=== PATIENT | male | born 1960 | race Caucasian/White ===

== ENCOUNTER 2018-10-07 18:56 | Inpatient (IN) | payer BC ==
[~2018-10-07] VITALS: Ht 170.2 cm; Wt 129.9 kg
[2018-10-07 19:10] LABS: Calcium, Ionized (POC) 1.14 mmol/L (1.10-1.46); Chloride (POC) 107 mmol/L (98-108); Creatinine (POC) 0.6 mg/dL (0.8-1.3); Glucose (ISTAT POC) 215 mg/dL (70-99); Hemoglobin (POC) 10.2 g/dL (13.5-17.5); Potassium (POC) 4.7 mmol/L (3.5-5.5); Sodium (POC) 138 mmol/L (135-148); Total CO2 (POC) 21 mmol/L (21-32)
[2018-10-07 19:17] LABS: BASOPHILS ABSOLUTE AUTO 0.04 K/mm3 (0.00-0.23); BASOPHILS PERCENT AUTO 0 % (0-2); EOSINOPHILS PERCENT AUTO 0 % (0-6); Hematocrit 31.6 % (37.0-53.0); Hemoglobin 10.3 g/dL (13.5-17.5); IMMATURE GRAN ABSOLUTE AUTO 0.15 K/mm3 (0.00-0.10); IMMATURE GRAN PERCENT AUTO 1 % (0-1); LYMPHOCYTES ABSOLUTE AUTO 1.78 K/mm3 (0.84-5.20); LYMPHOCYTES PERCENT AUTO 11 % (21-46); MONOCYTES ABSOLUTE AUTO 0.62 K/mm3 (0.16-1.47); MONOCYTES PERCENT AUTO 4 % (4-13); Mean Corpuscular HGB 30.9 pg (26.0-34.0); Mean Corpuscular HGB Conc 32.6 g/dL (31.5-36.5); Mean Corpuscular Volume 95 fL (80-100); Mean Platelet Volume 11.1 fL (9.1-12.4); NEUTROPHILS ABSOLUTE AUTO 13.68 K/mm3 (1.96-9.15); NEUTROPHILS PERCENT AUTO 84 % (41-73); Platelet Count 172 K/mm3 (150-400); RDW Coefficient Variation 15.1 % (11.7-14.2); RDW Standard Deviation 52.3 fL (35.1-46.3); Red Blood Cell Count 3.33 M/mm3 (4.30-5.90); White Blood Cell Count 16.27 K/mm3 (4.00-11.30)
[2018-10-07 19:39] LABS: Alanine Aminotransfer (ALT/SGP 49 U/L (12-78); Albumin, Blood 2.3 g/dL (3.4-5.0); Albumin/Globulin Ratio 0.6 (0.8-1.8); Alk Phos 150 U/L (50-136); Anion Gap 9 mmol/L (6-16); Aspartate Aminotrans (AST/SGOT 90 U/L (12-37); Bilirubin, Total 1.7 mg/dL (0.1-1.0); Blood Urea Nitrogen 26 mg/dL (8-24); Bun/Creatinine Ratio 53.1 (12.0-20.0); CO2, Blood 23 mmol/L (21-32); Calcium, Blood 8.8 mg/dL (8.5-10.1); Chloride, Blood 108 mmol/L (98-108); Creatinine, Blood 0.49 mg/dL (0.60-1.20); Globulin, Blood 3.6 g/dL (2.2-4.0); Glomerular Filtration Rate >60 (60-); Glucose, Blood 219 mg/dL (70-99); Potassium, Blood 4.7 mmol/L (3.5-5.5); Sodium, Blood 140 mmol/L (136-145); Total Protein, Blood 5.9 g/dL (6.4-8.2)
[2018-10-07 19:46] LABS: International Normalized Ratio 1.38; Prothrombin Time Results 14.2 Sec (9.7-11.5)
[2018-10-07] MEDS ORDERED: CENTRUM SILVER1 EAC2 PO (21:36)
[2018-10-07] MEDS ORDERED: VITAMIN D32000 UNIT PO (21:36)
[2018-10-07] MEDS ORDERED: Milk Thistle150 MG PO (21:37)
[2018-10-07] MEDS ORDERED: FISH OIL 1,001000 MG PO (21:38)
--- NOTE | 2018-10-07 21:47 | NUR ---
ASSUMED CARE RECIEVED REPORT FROM BERENICE IYER FROM ER. PT ARRIVES TO ICU VIA STRETCHER AT 2114. PT ALERT AND ORIENTED X 4, DENIES PAIN, SOB, AND NAUSEA. PT IS RECIEVING PROTONIX AND OCTREOTIDE GTTPS.
--- NOTE | 2018-10-07 21:50 | NUR ---
UPDATE DR. JUAN IN ROOM TO SEE PT AND EXPLAINING EGD PROCEDUE TO PT.
--- NOTE | 2018-10-07 21:55 | NUR ---
ANESTHESIA AND DAY SURGERY IN ROOM SETTING UP FOR PROCEDURE.
--- NOTE | 2018-10-07 21:59 | NUR ---
10/07/18 2113 Isaias Amor History, Chart, Medications and Allergies reviewed before start of procedure.MONITOR INTACT WITH CONTINUOUS PULSE OXIMETRY AND INTERMITTENT BP.3-LEAD EKG REVIEWED WITH PHYSICIAN PRIOR TO START OF PROCEDURE.O2 VIA N/C INTACT THROUGHOUT SEDATION/PROCEDURE. Patient confirms NPO status and agrees with scheduled surgery.See Anesthesia record.
[2018-10-07 23:01] LABS: Hematocrit 28.9 % (37.0-53.0); Hemoglobin 9.4 g/dL (13.5-17.5)
[2018-10-08 03:45] LABS: Hematocrit 27.1 % (37.0-53.0); Hemoglobin 8.9 g/dL (13.5-17.5)
[2018-10-08 04:06] LABS: Alanine Aminotransfer (ALT/SGP 44 U/L (12-78); Albumin, Blood 2.3 g/dL (3.4-5.0); Albumin/Globulin Ratio 0.7 (0.8-1.8); Alk Phos 134 U/L (50-136); Anion Gap 6 mmol/L (6-16); Aspartate Aminotrans (AST/SGOT 75 U/L (12-37); Bilirubin, Total 1.3 mg/dL (0.1-1.0); Blood Urea Nitrogen 27 mg/dL (8-24); Bun/Creatinine Ratio 51.2 (12.0-20.0); CO2, Blood 27 mmol/L (21-32); Chloride, Blood 109 mmol/L (98-108); Creatinine, Blood 0.53 mg/dL (0.60-1.20); Globulin, Blood 3.4 g/dL (2.2-4.0); Glomerular Filtration Rate >60 (60-); Glucose, Blood 235 mg/dL (70-99); Potassium, Blood 4.9 mmol/L (3.5-5.5); Sodium, Blood 142 mmol/L (136-145); Total Protein, Blood 5.7 g/dL (6.4-8.2)
[2018-10-08 07:13] LABS: Hematocrit 27.5 % (37.0-53.0)
--- NOTE | 2018-10-08 07:22 | NUR ---
SHIFT SUMMARY NO ACUTE CHANGES OVERNIGHT. PT IS ALERT AND ORIENTED X 4. HE DENIES PAIN, NAUSEA, AND ANY DISCOMFORT. ADMITS TO DRINKING 6 BEERS/DAY, MORE ON THE WEEKENDS FOR YEARS. BANANA BAG JUST FINISHED INFUSING. PT IS RECIEVING PROTONIX AND OCTREOTIDE GTTPS. PT HAS A STEADY GAIT, ABLE TO STAND WITH 1+ ASSIST, URINATE IN URINAL AND USE BEDSIDE COMMODE. PT IS IN NSR/ST, 90-110'S. NORMOTENSIVE. PT IS CURRENTLY ON RA. A FEW VERY DARK SMALL BM'S, MELENA - EXPECTED. EGD#1 OCCURED LAST NIGHT, NO INTERVENTION PERFORMED, EGD#2 SCHEDULED FOR 1000 TODAY. REGLAN Q6H WAS ORDERED FOR PREPERATION FOR EGD#2. SKIN IS OVERALL CDI. SLEPT IN ROOM LAST NIGHT, AND ASSISTED WITH CARE. BED IS LOW AND LOCKED, CALL LIGHT WITHIN REACH.
--- NOTE | 2018-10-08 09:34 | NUR ---
CARE ASSUMED CARE AND REPORT ASSUMED FROM PARIS IYER. PT DENIES PAIN THIS AM. VSS. NSR, HR 90-100 AND BP STABLE. DENIES NAUSEA AT THIS TIME. UP TO TOILET WITH MINIMAL ASSIST. HAD LARGE, BLOODY, LIQUID BM THIS AM. GETS OUT OF BED WITH 1 STANDBY ASSIST. A/O X 3. BEDSIDE. OCTREOTIDE AND PROTONIX GTT INFUSING. REMAINS NPO. WILL CONTINUE TO MONITOR.
--- NOTE | 2018-10-08 10:03 | NUR ---
10/08/18 1003 Isaias Amor History, Chart, Medications and Allergies reviewed before start of procedure.MONITOR INTACT WITH CONTINUOUS PULSE OXIMETRY AND INTERMITTENT BP.3-LEAD EKG REVIEWED WITH PHYSICIAN PRIOR TO START OF PROCEDURE.O2 VIA N/C INTACT THROUGHOUT SEDATION/PROCEDURE. Patient confirms NPO status and agrees with scheduled surgery.See Anesthesia record.
--- NOTE | 2018-10-08 12:40 | NUR ---
REASSESSMENT PT ATTEMPTING TO SLEEP BUT EASILY AWAKENS. TOLERATED EGD WELL THIS AM. OUT OF BED NEEDED TO BEDSIDE COMMODE. DENIES PAIN AND NAUSEA AT THIS TIME. VSS. BEDSIDE. OCTREOTIDE AND PROTONIX GTT CONTINUE TO INFUSE. TOLERATING CLEAR LIQUIDS. AFEBRILE. CALL LIGHT WITHIN REACH. NO SIGNS OF ETOH WITHDRAWAL; DISCUSSED WITH PT AND POSSIBLE SYMPTOMS FROM NOT DRINKING DAILY AND ASKED THEM TO INFORM STAFF IF SYMPTOMS ARISE. WILL MONITOR FOR WITHDRAWAL AND WILL CONTINUE TO MONITOR.
--- NOTE | 2018-10-08 16:44 | NUR ---
REASSESSMENT PT RECIEVED BEDBATH AND LINEN CHANGE THIS AFTERNOON. CONTINUES TO DENY ANY PAIN AND NAUSEA. VSS. NSR, HR 90S. OCTREOTIDE AND PROTONIX GTT CONTINUES TO INFUSE PER ORDERS. AT BEDSIDE. WILL CONTINUE TO MONITOR.
--- NOTE | 2018-10-08 18:33 | NUR ---
SHIFT SUMMARY PT HAD EGD COMPLETED IN AM WITH 2 BANDS APPLIED. VSS ENTIRE SHIFT. AFEBRILE. BOWEL MOVEMENTS HAVE DECREASED IN AMOUNT THOR. PT OUT OF BED MULTIPLE TIMES TO USE BEDSIDE COMMODE AND URINAL AND BRUSH HIS TEETH AT THE SINK. TOLERATING CLEAR LIQUIDS. FAMILY AT BEDSIDE DURING SHIFT. OCTREOTIDE AND PROTONIX GTT REMAINS INFUSING. WILL GIVE BEDSIDE, HANDOFF REPORT TO BAUDILIO IYER.
--- NOTE | 2018-10-08 22:57 | NUR ---
UPDATE EDUCATED PT AND ON ETOH WITHDRAWEL SYMPTOMS, AND HOW THE ICU MANAGES IT. WHAT SYMPTOMS TO PAY ATTENTION TO, ETC... DISCUSSED THE IMPORTANCE OF BLOOD PRESSURE CONTROL AND SUGGESTED MONITORING BLOOD PRESSURE AT HOME, BY BUYING A TAKE HOME BP CUFF. THEY STATED THEY THINK HIS BP IS ONLY ELEVATED WHEN HES AT THE HOSPITAL OR [facility] BECAUSE OF THE ANXIETY/STRESS RELATED TO GOING THERE. DESPITE HIM NOT GOING TO THE [facility] IN ~TWENTY SOMETHING YEARS. I INFORMED THEM OF THE CONSEQUENCES OF LIVING WITH HIGH BP FOR LONG PERIODS OF TIME, AND THE IMPORTANCE OF MONITORING YOUR BLOOD PRESSURE DURING NON-STRESSFUL/ANXIOUS TIMES. PT DENIES PAIN, NAUSEA, SHAKINESS, AND ANY SYMPTOMS RELATED TO ETOH W/D. PT STATES HE STILL IS HAVING DARK STOOLS BUT LESS OFTEN. HE FELT GASSY EARLIER BUT IS FINE NOW. BED LOW AND LOCKED. CALL LIGHT WITHIN REACH.
--- NOTE | 2018-10-09 06:33 | NUR ---
SHIFT SUMMARY NO ACUTE CHANGES OVERNIGHT. PT SLEPT MAJORITY OF NIGHT; UP IN ROOM TWICE TO URINATE. NO BM OVER NIGHT. PT IS ALERT AND ORIENTEX X 4. HE HAS DENIED ANY PAIN, NAUSEA, AND GENERAL ETOH W/D SYMPTOMS OVERNIGHT. PT IS HAVING HYPERACTIVE BOWEL SOUNDS. PT HAS DISTENDED ABDOMEN, BUT IS NORMAL PER PT, AND IS NOT TENDER UPON PALPATION. HE HAS BEEN TOLERATING CLEAR LIQUIDS WELL. VITALS HAVE BEEN STABLE ALL NIGHT. I WILL ANTICIPATE A STATUS CHANGE THIS MORNING. PT IS STILL RECIEVING PROTONIX AND OCTREOTIDE GTTPS. BED IS LOW AND LOCKED. CALL LIGHT WITHIN REACH. IN RECLINER AT BEDSIDE.
--- NOTE | 2018-10-09 07:36 | NUR ---
AM ASSESSMENT: REC'D BEDSIDE REPORT FROM JAYLON ALVAREZ AND AM NOW ASSUMING CARE OF THIS PT. PT IS ALERT AND ORIENTED X3. DENIES ANY PAIN OR NAUSEA. PT ABLE TO MOVE SELF INDEPENDENTLY IN THE BED, SBA WHEN USING URINAL. LUNGS ARE CLEAR T/O BUT DIMINISHED IN THE BILATERAL BASES. SP02 SATS >90% ON RA. HR REGULAR, SR. NO EDEMA. PROTONIX GTT @ 10ML/HR, OCTREOTIDE @ 25ML/HR. ABD LARGE/MODERATELY DISTENDED (WHICH PT REPORTS IS NORMAL), NO PAIN WITH PALPATION. BT'S ARE HYPERACTIVE X4 QAUDS. PT REPORTS POOR APPETITE. CONTINUE CLEAR LIQUID DIET, WILL DISCUSS ADVANCING DIET WITH DR TODAY. PT VOIDS PER URINAL WHILE STANDING AT THE BEDSIDE.
[2018-10-09 07:45] LABS: Hematocrit 26.4 % (37.0-53.0); Hemoglobin 8.5 g/dL (13.5-17.5)
[2018-10-09 08:06] LABS: HBSAG SCREEN Negative (Negative); HEP A AB, IGM Negative (Negative); HEP B CORE AB, IGM Negative (Negative); HEP C VIRUS AB <0.1 (0.0-0.9)
--- NOTE | 2018-10-09 08:11 | NUR ---
DR OLIVIA IN TO ASSESS PT. UPDATED DR ON PT'S CURRENT STATUS. PT IS NOW MEDICAL, NO TELE STATUS. WILL TNX WHEN A BED IS AVAILABLE.
--- NOTE | 2018-10-09 08:51 | NUR ---
REPORTED OFF TO JAYLON BYRNE WHOM WILL ASSUME CARE OF THIS PT.
--- NOTE | 2018-10-09 10:04 | NUR ---
TRANSFER NOTE RECEIVED HANDOFF REPORT FROM ICU NURSE ADIEL. SHE ACCOMPANIED THE PT TO MEDICAL FLOOR VIA WHEELCHAIR. SHE REQUESTED THREE IV PUMPS BE PREPARED IN THE ROOM. PT ORIENTED TO UNIT. CALL LIGHT PLACED WITHIN REACH. DR. DE LA CRUZ HAD MADE SOME RECOMMENDATIONS FOR CARE, HOWEVER, NO NEW ORDERS HAVE BEEN ENTERED AT THIS TIME. WILL CONTINUE TO WATCH FOR ANY NEW ORDERS.
--- NOTE | 2018-10-09 10:07 | NUR ---
PT TNX'D VIA W/C BY THIS RN TO RM 333. PT BELONGINGS AND CHART WERE SENT WITH HIM. TUBED THE MEDICATIONS AND INFORMED JAYLON BYRNE WHOM WILL BE ASSUMING CARE OF THIS PT.
--- NOTE | 2018-10-09 13:53 | NUR ---
GI DOCTOR ROUNDED ON PT IV PROTONIX DC'D. ORDER GIVEN FOR ORAL PROTONIX. DR JUAN STATED IT WOULD BE FINE FROM HIS PERSPECTIVE FOR THE PT TO DC TOMORROW AFTERNOON IF THE HOSPITALIST WERE TO ORDER THAT. RECOMMENDED LOW SALT DIET AND ROUTINE ULTRASOUNDS FOR LIFE WELL. PT & PROVIDED WITH HARDCOPY INFORMATION ON THE DASH DIET.
--- NOTE | 2018-10-09 15:46 | NUR ---
WRONG PROVIDER ENTERED FOR ORDERS [facility] WILL NOT ALLOW ME TO ENTER THE CORRECT PROVIDER, DR. BALLESTEROS, FOR THE ORDER TO DISCONTINUE PROTONIX TODAY. I MISTAKENLY ENTERED DR. TELLEZ'S NAME THE PROVIDER.
--- NOTE | 2018-10-09 15:53 | NUR ---
SHIFT SUMMARY DR BALLESTEROS ROUNDED ON PT. ORDERED IV PROTONIX DC'D. ORDERED ORAL PROTONIX. RECOMMENDED LOW SALT DIET AND ROUTINE ULTRASOUNDS FOR LIFE. HE STATED THAT FROM HIS PERSPECTIVE THE PT COULD DC HOME TOMORROW AFTERNOON IF THE HOSPITALIST ORDERED THAT. PT DENIES PAIN. WE HAVE ADVANCED HIS DIET TODAY. HE STATED HIS THROAT FELT A LITTLE SCRATCHY. COMPLETED INFUSION OF TODAY'S THIAMINE. OCTREOTIDE IS RUNNING STILL. PT & FAMILY PROVIDED WITH INFORMATION ON THE DASH DIET.
[2018-10-09 19:11] LABS: Hemoglobin 8.7 g/dL (13.5-17.5)
--- NOTE | 2018-10-10 06:16 | NUR ---
SHIFT SUMMARY PT A/O INDEPENDENT. NO C/O PAIN. CIWA SCORE ZERO. AT BEDSIDE T/O NIGHT. HE WAS ABLE TO SLEEP OFF AND ON T/O NIGHT. CALL LIGHT IN REACH.
[2018-10-10] MEDS ORDERED: PANT20 PO (13:58)
[2018-10-10] MEDS ORDERED: NADO20 PO (13:58)
[2018-10-10] MEDS ORDERED: Carafate1 GM/10 ML PO (13:59)
[2018-10-10] MEDS ORDERED: CIPR500 PO (14:00)
--- NOTE | 2018-10-10 16:15 | NUR ---
PATIENT DISCHARGED AT 1535 PT DISCHARGED HOME WITH . IVS REMOVED. PT DENIES PAIN OR OTHER DISCOMFORT, JUST THROAT A LITTLE SCRATCHY. SANDOSTATIN AND BANANA BAG RAN THROUGH DAY UNTIL DISCHARGE. PATIENT HAD A FEW LIGHT BROWN LOOSE STOOLS THROUGH MORNING, HOSPITALIST NOTIFIED, NO NEW ORDERS. DC PACKET GIVEN TO AND EXPLAINED TO PATIENT BY CHARGE NURSE Rocio METZGER RN. PATIENT VERBALIZED UNDERSTANDING AND SIGNED DC FORM.
== END 2018-10-10 15:52 | disposition home or self-care (01) | DRG 432 ==
LOC: ER 18:56 → ICUW 20:25 → ICUE 20:25 → MEDS 20:25 → ICUE 20:53 → MEDS 10-09 09:48
PROVIDERS: Emergency Medicine; Internal Medicine; Physician Assistant; Student in an Organized Health Care Education/Training Program; ADMIT Hospitalist
PROC: 0DJ08ZZ Inspection of Upper Intestinal Tract, Via Natural or Artificial Opening Endoscopic (ICD-10-PCS; 2018-10-07)
PROC: 06L38CZ Occlusion of Esophageal Vein with Extraluminal Device, Via Natural or Artificial Opening Endoscopic (ICD-10-PCS; principal; 2018-10-07 21:00)
DX: K70.30 Alcoholic cirrhosis of liver without ascites (principal); I85.11 Secondary esophageal varices with bleeding; D62 Acute posthemorrhagic anemia; I74.8 Embolism and thrombosis of other arteries; K76.6 Portal hypertension; F10.20 Alcohol dependence, uncomplicated; R73.9 Hyperglycemia, unspecified; K31.89 Other diseases of stomach and duodenum
CPT/HCPCS: 36415; 71045; 80047; 80053; 80074; 82947; 83036; 83735; 85014; 85018; 85025; 85610; 85730; 86850; 86900; 86901; 93005; 93010; 93975; 96365; 96375; 96376; 99285-25; C9113; J0330; J0696; J1430; J2250; J2354; J2370; J2704; J2765; J3411; J3475; J7030; J7042; J7050; J7120

== ENCOUNTER 2018-12-29 10:57 | Day surgery (SDC) | payer BC ==
[~2018-12-29] VITALS: Ht 170 cm; Wt 115.6 kg
[~2018-12-29 10:57] MED LIST: CENTRUM SILVER1 EAC2 PO; CIPR500 PO; Carafate1 GM/10 ML PO; FISH OIL 1,001000 MG PO; Milk Thistle150 MG PO; NADO20 PO; PANT20 PO; VITAMIN D32000 UNIT PO
--- NOTE | 2018-12-29 12:27 | NUR ---
12/29/18 1227 Laine Lazaro 4.5 ML NACL WITH INDIGO MIXED IN FOR POLYP REMOVAL.
== END 2018-12-29 13:39 | disposition home or self-care (01) ==
LOC: ORSCSDS 10:57
PROVIDERS: Student in an Organized Health Care Education/Training Program
PROC: 0DBM8ZX Excision of Descending Colon, Via Natural or Artificial Opening Endoscopic, Diagnostic (ICD-10-PCS; principal; 2018-12-29 12:00)
PROC: 0DBH8ZX Excision of Cecum, Via Natural or Artificial Opening Endoscopic, Diagnostic (ICD-10-PCS; principal; 2018-12-29 12:00)
PROC: 0DBP8ZX Excision of Rectum, Via Natural or Artificial Opening Endoscopic, Diagnostic (ICD-10-PCS; principal; 2018-12-29 12:00)
PROC: 0DBL8ZX Excision of Transverse Colon, Via Natural or Artificial Opening Endoscopic, Diagnostic (ICD-10-PCS; principal; 2018-12-29 12:00)
PROC: 0DB68ZX Excision of Stomach, Via Natural or Artificial Opening Endoscopic, Diagnostic (ICD-10-PCS; principal; 2018-12-29 12:00)
PROC: 06L38CZ Occlusion of Esophageal Vein with Extraluminal Device, Via Natural or Artificial Opening Endoscopic (ICD-10-PCS; principal; 2018-12-29 12:00)
PROC: 0DBK8ZX Excision of Ascending Colon, Via Natural or Artificial Opening Endoscopic, Diagnostic (ICD-10-PCS; principal; 2018-12-29 12:00)
DX: K74.60 Unspecified cirrhosis of liver (principal); I85.10 Secondary esophageal varices without bleeding; Z12.11 Encounter for screening for malignant neoplasm of colon; D12.4 Benign neoplasm of descending colon; D12.3 Benign neoplasm of transverse colon; D12.2 Benign neoplasm of ascending colon; D12.0 Benign neoplasm of cecum; K62.1 Rectal polyp; K29.70 Gastritis, unspecified, without bleeding; K76.6 Portal hypertension; K31.89 Other diseases of stomach and duodenum; K64.8 Other hemorrhoids; E66.01 Morbid (severe) obesity due to excess calories; Z68.39 Body mass index [BMI] 39.0-39.9, adult
CPT/HCPCS: 88305; 88342; J2704; J7120

== ENCOUNTER 2019-02-27 09:53 | Day surgery (SDC) | payer BC ==
[~2019-02-27] VITALS: Ht 170.2 cm; Wt 116.2 kg
[~2019-02-27 09:53] MED LIST changes: +CARAFATE1 GM/10 ML PO; +Cinnamon500 MG PO; +Coq-1030 MG; +Glucosamine H1500 MG PO; +MILK THISTLE87.5 MG PO; +Multiple Vitam1 EACH PO; +NADO40 PO; +Omega 3 1,0001 EACH PO; +Oyster Shell C500 MG PO; +Slow Release I160 MG PO; +VITAMIN B12-FO1 EACH PO; +VITAMIN C/ROSE HIPS PO; +Vitamin D2000 UNIT PO
--- NOTE | 2019-02-27 11:29 | NUR ---
02/27/19 1128 Diana Shipman RN UPDATED PT AND PT'S REGARDING THE DELAY IN HIS PROCEDURE DUE TO PREVIOUS CASE GOING LONG. RN OFFERRED WARM BLANKETS. CALL LIGHT IN REACH. NO NEEDS AT THIS TIME.
== END 2019-02-27 12:40 | disposition home or self-care (01) ==
LOC: ORSCSDS 09:53
PROVIDERS: Student in an Organized Health Care Education/Training Program
PROC: 0DB68ZX Excision of Stomach, Via Natural or Artificial Opening Endoscopic, Diagnostic (ICD-10-PCS; principal; 2019-02-27 11:15)
DX: Z13.810 Encounter for screening for upper gastrointestinal disorder (principal); K74.60 Unspecified cirrhosis of liver; I85.00 Esophageal varices without bleeding; K76.6 Portal hypertension; K31.89 Other diseases of stomach and duodenum
CPT/HCPCS: 88302; J2704; J7120

== ENCOUNTER → 2019-03-02 | Outpatient (CLI) | payer BC | LOC: LAB 17:19 → LAB SHORT 17:19 | DX: L08.9 Local infection of the skin and subcutaneous tissue, unspecified (principal); L82.1 Other seborrheic keratosis; L91.8 Other hypertrophic disorders of the skin; L53.8 Other specified erythematous conditions | CPT/HCPCS: 87070; 87205 ==

== ENCOUNTER 2020-11-07 11:07 | Day surgery (SDC) | payer BC ==
[~2020-11-07] VITALS: Ht 172.7 cm; Wt 120.2 kg
--- NOTE | 2020-11-07 11:28 | NUR ---
Ambulatory in [facility] warming gown applied. Patient states colon prep results clear. History, Chart, Medications and Allergies reviewed before start of procedure.History, Chart, Medications and Allergies reviewed before start of procedure.Lungs clear T/O to Auscultation. Patient confirms NPO status and agrees with scheduled surgery. Pre-Op teaching done. Pt verbalizes understanding. Patient States Post-Procedure ride home has been arranged.
--- NOTE | 2020-11-07 11:59 | NUR ---
11/07/20 1159 PARESH PEREZ History, Chart, Medications and Allergies reviewed before start of procedure. 3-LEAD EKG REVIEWED WITH PHYSICIAN PRIOR TO START OF PROCEDURE. O2 VIA POM INTACT THROUGHOUT SEDATION/PROCEDURE. MONITOR INTACT WITH CONTINUOUS PULSE OXIMETRY AND INTERMITTENT BP. MAC WITH DR. JOHN.
--- NOTE | 2020-11-07 13:23 | NUR ---
Patient up to Ambulate independently. Gait steady. Discharge instructions reviewed with patient. Patient verbalizes understanding. Copy given to patient to take home. Patient States Post-Procedure ride home has been arranged WITH . Discharged via wheelchair to private car for ride home.
== END 2020-11-07 13:19 | disposition home or self-care (01) ==
LOC: ORSCMMR 11:07 → ORD 12:15 → ORSCMMR 13:19
PROVIDERS: Student in an Organized Health Care Education/Training Program
PROC: 0DBM8ZX Excision of Descending Colon, Via Natural or Artificial Opening Endoscopic, Diagnostic (ICD-10-PCS; principal; 2020-11-07 12:15)
PROC: 0DB78ZX Excision of Stomach, Pylorus, Via Natural or Artificial Opening Endoscopic, Diagnostic (ICD-10-PCS; principal; 2020-11-07 12:15)
PROC: 0DBN8ZX Excision of Sigmoid Colon, Via Natural or Artificial Opening Endoscopic, Diagnostic (ICD-10-PCS; principal; 2020-11-07 12:15)
PROC: 0DBL8ZX Excision of Transverse Colon, Via Natural or Artificial Opening Endoscopic, Diagnostic (ICD-10-PCS; principal; 2020-11-07 12:15)
DX: Z12.11 Encounter for screening for malignant neoplasm of colon (principal); Z86.010 Personal history of colon polyps; K74.60 Unspecified cirrhosis of liver; I85.00 Esophageal varices without bleeding; D12.4 Benign neoplasm of descending colon; D12.3 Benign neoplasm of transverse colon; D12.8 Benign neoplasm of rectum; K57.30 Diverticulosis of large intestine without perforation or abscess without bleeding; K64.8 Other hemorrhoids; K64.4 Residual hemorrhoidal skin tags; K76.6 Portal hypertension; K31.89 Other diseases of stomach and duodenum; K31.7 Polyp of stomach and duodenum; Z87.891 Personal history of nicotine dependence; E66.01 Morbid (severe) obesity due to excess calories; Z68.41 Body mass index [BMI] 40.0-44.9, adult
CPT/HCPCS: 88305; 88342; J2704; J3010; J7120

== ENCOUNTER 2022-12-28 18:31 | Emergency (ER) | payer BC ==
[~2022-12-28] VITALS: Ht 172.7 cm; Wt 122.5 kg
[2022-12-28 18:32] VITALS: BP 168/92
[2022-12-28] MEDS ORDERED: HYDR1TAB94 PO ×2 (19:18→19:19)
== END 2022-12-28 19:42 | disposition home or self-care (01) ==
LOC: ER 18:31
DX: M25.562 Pain in left knee (principal); Z79.899 Other long term (current) drug therapy
CPT/HCPCS: 99282; A9270

== ENCOUNTER 2023-01-15 10:01 | Emergency (ER) | payer BC ==
[~2023-01-15] VITALS: Ht 172.7 cm; Wt 119.3 kg
[~2023-01-15 10:01] MED LIST changes: +HYDR1TAB94 PO
[2023-01-15 11:35] LABS: BASOPHILS ABSOLUTE AUTO 0.05 K/mm3 (0.00-0.23); BASOPHILS PERCENT AUTO 1 % (0-2); EOSINOPHILS ABSOLUTE AUTO 0.04 K/mm3 (0.00-0.68); EOSINOPHILS PERCENT AUTO 0 % (0-6); Hematocrit 53.3 % (37.0-53.0); Hemoglobin 18.2 g/dL (13.5-17.5); IMMATURE GRAN ABSOLUTE AUTO 0.06 K/mm3 (0.00-0.10); IMMATURE GRAN PERCENT AUTO 1 % (0-1); LYMPHOCYTES ABSOLUTE AUTO 1.02 K/mm3 (0.84-5.20); LYMPHOCYTES PERCENT AUTO 11 % (21-46); MONOCYTES ABSOLUTE AUTO 1.07 K/mm3 (0.16-1.47); MONOCYTES PERCENT AUTO 11 % (4-13); Mean Corpuscular HGB 28.6 pg (26.0-34.0); Mean Corpuscular HGB Conc 34.1 g/dL (31.5-36.5); Mean Corpuscular Volume 84 fL (80-100); Mean Platelet Volume 12.4 fL (9.1-12.4); NEUTROPHILS ABSOLUTE AUTO 7.12 K/mm3 (1.96-9.15); NEUTROPHILS PERCENT AUTO 76 % (41-73); Platelet Count 195 K/mm3 (150-400); RDW Coefficient Variation 17.6 % (11.7-14.2); RDW Standard Deviation 49.1 fL (35.1-46.3); Red Blood Cell Count 6.37 M/mm3 (4.30-5.90); White Blood Cell Count 9.36 K/mm3 (4.00-11.30)
[2023-01-15 12:06] LABS: International Normalized Ratio 1.31; Prothrombin Time Results 13.5 Sec (9.7-11.5)
[2023-01-15 14:05] LABS: Albumin, Blood 3.1 g/dL (3.4-5.0); Albumin/Globulin Ratio 0.8 (0.8-1.8); Bilirubin, Direct 9.2 mg/dL (0.0-0.3); Bilirubin, Indirect 2.8 mg/dL (0.1-0.7); Globulin, Blood 3.7 g/dL (2.2-4.0); Total Protein, Blood 6.8 g/dL (6.4-8.2)
[2023-01-15] MEDS ORDERED: METOPROLOL SUCC25 MG PO (14:29)
[2023-01-15] MEDS ORDERED: OMEP20ER PO (14:29)
[2023-01-15] MEDS ORDERED: TACROLIMUS PO (14:29)
[2023-01-15] MEDS ORDERED: SITA100T2 PO (14:30)
[2023-01-15 15:27] LABS: Albumin, Blood 3.1 g/dL (3.4-5.0); Albumin/Globulin Ratio 0.8 (0.8-1.8); Bilirubin, Total 11.5 mg/dL (0.1-1.0); Bun/Creatinine Ratio 17.6 (12.0-20.0); Calcium, Blood 8.7 mg/dL (8.5-10.1); Creatinine, Blood 1.02 mg/dL (0.60-1.20); Globulin, Blood 3.7 g/dL (2.2-4.0); Potassium, Blood 4.7 mmol/L (3.5-5.5); Total Protein, Blood 6.8 g/dL (6.4-8.2)
[2023-01-15 15:39] LABS: Source, Urine Clean Catch
[2023-01-15 15:42] LABS: Appearance, Urine Clear (Clear); Bilirubin, Urine Neg (Neg); Blood, Urine Neg (Neg); Color, Urine Yellow (P-Yellow); Glucose Qualitative, Urine Neg (Neg); Ketones, Urine Neg (Neg); Leukocyte Esterase, Urine Neg (Neg); Nitrite, Urine Neg (Neg); Protein, Urine Neg (Neg); Urobilinogen, Urine NORM (Normal)
[2023-01-15 17:58] LABS: Influenza A, PCR NEGATIVE (NEGATIVE); Influenza B, PCR NEGATIVE (NEGATIVE); Resp Syncytial Virus, PCR NEGATIVE (NEGATIVE); SARS-Cov-2 (COVID-19) PCR, MMC NEGATIVE (NEGATIVE)
[2023-01-15 20:15] VITALS: BP 124/86
[2023-01-18 01:08] LABS: HBSAG SCREEN Negative (Negative); HCV AB Non Reactive (Non Reactive); HEP A AB, IGM Negative (Negative); HEP B CORE AB, IGM Negative (Negative)
== END 2023-01-15 18:20 | disposition home or self-care (01) ==
LOC: ER 10:01
PROVIDERS: Emergency Medicine
DX: K72.00 Acute and subacute hepatic failure without coma (principal); Z79.899 Other long term (current) drug therapy
CPT/HCPCS: 0241U; 80053; 80074; 80076; 80197; 81003; 83690; 85025; 85610; 93975; 96360; 96361; 99285-25; J7120